=== PATIENT | male | born 1990 | race Caucasian/White ===

== ENCOUNTER 2022-03-11 03:24 | Emergency (ER) | payer SELFPAY ==
[~2022-03-11] VITALS: Ht 188 cm; Wt 127.0 kg
[2022-03-11 03:33] VITALS: BP_SYST 143
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
--- NOTE | 2022-03-11 03:47 | NUR ---
Patient to ER [facility] to [facility] for evaluation. Side rails up. Report given to KEVIN VALDOVINOS.
--- NOTE | 2022-03-11 04:08 | NUR ---
ER MD Stewart at bedside speaking with patient.
[2022-03-11 04:47] VITALS: BP_SYST 134
--- NOTE | 2022-03-11 04:47 | NUR ---
Patient given written and verbal discharge instructions and verbalizes understanding. ER MD discussed with patient the results and treatment provided. Patient in stable condition. ID arm band removed. Rx of NONE given. Patient educated on pain management and to follow up with PMD. Pain Scale 0/10. Opportunity for questions provided and answered. Medication side effect fact sheet provided.
== END 2022-03-11 04:47 ==
LOC: SED 03:24
DX: Z02.89 Encounter for other administrative examinations (principal); R03.0 Elevated blood-pressure reading, without diagnosis of hypertension; Z79.899 Other long term (current) drug therapy
CPT/HCPCS: 99283